=== PATIENT | female | born 1995 | race African-American/Black ===

== ENCOUNTER 2018-10-11 15:45 | Emergency (ER) | payer SELFPAY ==
[~2018-10-11] VITALS: Ht 167.6 cm; Wt 52.0 kg
[2018-10-11 15:48] VITALS: BP 126/72
== END 2018-10-11 16:39 | disposition left against medical advice (07) ==
LOC: ER 15:45
DX: Z53.21 Procedure and treatment not carried out due to patient leaving prior to being seen by health care provider (principal)